=== PATIENT | male | born 1985 | race Caucasian/White ===

== ENCOUNTER 2022-08-26 18:06 | Emergency (ER) | payer OTHER ==
[2022-08-26] MEDS ORDERED: Albuterol/Ipratropium 3.0-0.5 MG/3 ML Neb Soln NEB STA (21:00)
[2022-08-26] MEDS ORDERED: Lactated Ringers 1,000 ML IV STA (21:00)
[2022-08-26] MEDS ORDERED: methylPREDNISolone Sodium Succinate 40 MG/1 ML SDV IVPUSH ONE (21:01)
== END 2022-08-26 22:13 | disposition home or self-care (01) ==
LOC: MW.ED 18:06
DX: J45.901 Unspecified asthma with (acute) exacerbation (principal); Z20.822 Contact with and (suspected) exposure to COVID-19
CPT/HCPCS: 87635; 96360; 99283; J2920; J7120; J7620-GY; U0002